=== PATIENT | female | born 1995 | race Two or more races ===

== ENCOUNTER 2025-11-18 05:08 | Day surgery (SDC) | payer OTHER ==
[2025-11-10 14:28] VITALS: BP 138/94
[~2025-11-18] VITALS: Ht 157.5 cm; Wt 99.8 kg
[~2025-11-18 05:08] MED LIST: CRYSELLE-28 TA1 EACH PO; OMEPRAZOLE40 MG PO; SYNTHROID75 MCG PO; TRAZODONE HCL50 MG PO; ZESTRIL10 M1 PO
[2025-11-18] MEDS ORDERED: BUPIVACAINE HCL/MPF 0.5% 30ML VIAL ONE (07:25)
[2025-11-18] MEDS ORDERED: HEMOSTATIC MATRIX 1 KIT KIT TOP ONE (07:26)
[2025-11-18] MEDS ORDERED: DIBUCAINE 30 GM TUBE ONE (07:26)
[2025-11-18] MEDS ORDERED: POVIDONE-IODINE 118 ML BOTT TOP ONE (07:26)
[2025-11-18] MEDS ORDERED: LIDOCAINE HCL 1%/EPINEPHRINE 20ML VIAL IJ ONE (07:26)
[2025-11-18] MEDS ORDERED: METRONIDAZOLE/SODIUM CHLORIDE 500 MG/100 ML PIGGYBACK IV ONE (07:48)
[2025-11-18] MEDS ORDERED: CEFTRIAXONE SODIUM 2,000 MG VIAL ONE (07:48)
[2025-11-18] MEDS ORDERED: HYDROGEN PEROXIDE 473 ML BOTTLE TOP ONE (08:48)
[2025-11-18] MEDS ORDERED: TAMSULOSIN HCL 0.4 MG CAP PO ONE ×2 (09:45→11:34)
[2025-11-18] MEDS ORDERED: OXYCODONE HCL5 MG PO (09:52)
[2025-11-18] MEDS ORDERED: OXYC1TAB9 PO (10:43)
== END 2025-11-18 13:40 | disposition home or self-care (01) ==
LOC: CIR.AMB 05:08
PROVIDERS: ATTEND Surgery
DX: K60.321 Anal fistula, complex, initial (principal); K62.89 Other specified diseases of anus and rectum